=== PATIENT | female | born 1950 | race Two or more races ===

== ENCOUNTER 2018-02-08 12:11 | Emergency (ER) | payer OTHER ==
[2018-02-08] MEDS ORDERED: OLANZapine DISINTEGR 10 MG TAB ONE (13:07)
[2018-02-08] MEDS ORDERED: OLANZapine DISINTEGR 10 MG TAB PO ONE (13:14)
[2018-02-08 13:37] LABS: PLATELET COUNT 339 10^3/uL (150-400)
[2018-02-08] MEDS ORDERED: LORazepam 1 MG TAB PO ONE ×2 (15:17→21:27)
--- NOTE | 2018-02-08 15:22 | EDPHY ---
H & P Smoking Status: Never smoked Time Seen by Provider: 02/08/18 12:44 HPI/ROS: HPI Bipolar, increased aggression towards family. 67-year-old female by private vehicle with family. This patient has been manic according to the family and has had increased aggression towards them. She has not been suicidal. She is on worse. All and paroxetine for psychiatric medications. ROS: Constitutional: No fever, no chills. As above. Eyes: No discharge. No changes in vision. ENT: No sore throat. No nasal congestion or rhinorrhea. Respiratory: No cough. No shortness of breath. Cardiac: No chest pain, no palpitations. Gastrointestinal: No abdominal pain, no vomiting, no diarrhea. Genitourinary: No hematuria. No dysuria or increased frequency with urination. Musculoskeletal: No back pain. No neck pain. No myalgias or arthralgias. Skin: No rashes. Neurological: No headache. No focal weakness or altered sensation. Past medical history: Bipolar, type 2 diabetes, hyperlipidemia. Social history: Nonsmoker. No alcohol. Here with daughter currently. Physical Exam: General Appearance: Alert, mildly agitated. This patient is responding to questions appropriately and in full sentences. This patient appears well- hydrated and well-nourished. Eyes: Pupils equal and round no pallor or injection. No lid edema, erythema or injection. Respiratory: There are no retractions, lungs are clear to auscultation with good air movement bilaterally. Cardiovascular: Regular rate and rhythm. No murmur. Gastrointestinal: Abdomen is soft and nontender, no masses, bowel sounds normal. No focal tenderness at McBurney's point. No Rider sign. Neurological: Motor sensory function is grossly intact. Cranial nerves are normal. Gait is normal. Skin: Warm and dry, no rashes. Musculoskeletal: Neck is supple and nontender. Extremities are symmetrical. All joints range without pain or impingement. Psychiatric: No agitation. No depression. Database: EKG: Imaging: Procedures: Emergency department course: Triage vital signs reviewed. She is mildly tachycardic. Vital signs otherwise normal. She is afebrile. After initial presentation she was trying to tear off her clothes run out of the emergency department. She was placed on an M1 hold by myself at 1:45 p.m.. She was given 10 mg of oral Zyprexa. 3:15 p.m., the patient has been seen and evaluated by Behavioral Health. They are planning on placing her. I have not spoken with them. Her nursing staff tells me that she has remained agitated and feel the Zyprexa has had little effect. She will be given oral Ativan, 1 mg now and this will repeated x1 in half an hour if needed. The patient's remaining emergency department course under my care has been uneventful. The patient's care was turned over to Dr. Jatin Joyner at 3:15 p.m.. Differential Diagnosis: The differential diagnosis on this patient includes but is not limited to bipolar with manic exacerbation. Suicidal ideation, major depression, homicidal ideation unlikely. This represents a partial list of diagnoses considered. These considerations are based on history, physical exam, past history, reassessment and diagnostic testing. (Billy Mckeon) Constitutional: Initial Vital Signs Temperature (C) 36.5 C 02/08/18 12:29 Heart Rate 117 H 02/08/18 12:29 Respiratory Rate 16 02/08/18 12:29 Blood Pressure 179/85 H 02/08/18 12:29 O2 Sat (%) 95 02/08/18 12:29 O2 Delivery Mode Room Air Allergies/Adverse Reactions: No Known Allergies Allergy (Unverified 02/08/18 13:04) Home Medications: Medication Instructions Recorded Amoxicillin Trihydrate 500 mg PO TID 02/08/18 [Amoxicillin] Benazepril HCl [Lotensin (*)] 20 mg PO DAILY 02/08/18 LORazepam [Ativan (*)] 0.5 mg PO BID PRN 02/08/18 PARoxetine HCL [Paxil 20mg (*)] 20 mg PO DAILY 02/08/18 Simvastatin [Zocor] 20 mg PO HS 02/08/18 amLODIPine BESYLATE [Norvasc 5 mg 5 mg PO DAILY 02/08/18 (*)] metFORMIN HCL [Glucophage 500 mg 1,000 mg PO DAILY@1800 02/08/18 (*)] metFORMIN HCL [Glucophage 500 mg 500 mg PO DAILY 02/08/18 (*)] risperiDONE [Risperdal] 4 mg PO HS 02/08/18 Medical Decision Making ED Course/Re-evaluation: The patient was accepted by Dr. Toscano at [facility]. We will transfer there. (Jatin Joyner) 12:30 a.m.- I have completed the EMTALA form for transfer of this patient to [facility]. (Deb Martínez) - Data Points Laboratory Results: Laboratory Results 02/08/18 12:28 02/08/18 12:28 Medications Given: Discontinued Medications Amoxicillin (Amoxicillin) 500 mg PO EDNOW ONE PRN Reason: Protocol Stop: 02/08/18 20:44 Last Admin: 02/08/18 21:32 Dose: 500 mg Atorvastatin Calcium (Lipitor) 10 mg PO EDNOW ONE Stop: 02/08/18 21:31 Last Admin: 02/08/18 21:33 Dose: 10 mg Lorazepam (Ativan) 1 mg PO ONCE ONE Stop: 02/08/18 15:18 Last Admin: 02/08/18 15:27 Dose: 1 mg Lorazepam (Ativan) 1 mg PO EDNOW ONE Stop: 02/08/18 21:28 Last Admin: 02/08/18 21:32 Dose: 1 mg Metformin HCl (Glucophage) 1,000 mg PO ONCE ONE Stop: 02/08/18 20:44 Last Admin: 02/08/18 21:32 Dose: 1,000 mg Olanzapine (Zyprexa Zydis) 10 mg PO EDNOW ONE Stop: 02/08/18 13:15 Last Admin: 02/08/18 13:13 Dose: 10 mg Risperidone (Risperdal) 4 mg PO ONCE ONE Stop: 02/08/18 20:44 Last Admin: 02/08/18 21:33 Dose: 4 mg Departure - Departure Disposition: Other Psych, Not Junior Clinical Impression: Bipolar 1 disorder Condition: Fair Referrals: Janine Fermin MD [Primary Care Provider] - As per Instructions
--- NOTE | 2018-02-08 16:18 | ASMTTLCEVL ---
TLC Evaluation - Basic Information Evaluation Start Date and 02/08/2018 01:00 PM Time Hospital Status Answers: M1 Hold 72-hr M1 Hold Start Date 02/08/2018 12:45 PM and Time Patient statement Notes: Statement obtained from pt's daughter, Ashia. "I brought my mother here because for the past 1 and 1/2 weeks she has been getting progressively worse with not sleeping, likely not taking her medications and now aggressive behavior towards my dad. Today my mom was hyper at [facility] where she took off her clothes and went out of the apartment. She also started throwing objects on the floor. I don't think my mother has slept at all in the past few days. She has been under a lot of stress between taking care of my father who is in a wheelchair and a recent move to [place] from [place] in August. Narrative Notes: Pt is a 67 year old , [place] decent female who presented to the [facility] ED with her daughter due to increased aggression towards family and manic type behaviors. Pt has a hx of bipolar disorder and recently experiencing significant life stressors such as move to [facility] from [place] and primary supply analyst role of who has a hx of multiple strokes. Pt was alert to person, place, time and situation. She was hyper verbal and re-directable with daughter present. Pt's utox was negative for all substances. When pt initially arrived to the [facility] ED she was given 10 mg. of Zyprexa due to agitation and pt. again disrobing herself. Diagnosis History Notes: Pt was diagnosed with bipolar disorder in 1974 but did not start receiving psychiatric treatment until she moved to [facility] in 1988. Prior suicide attempts Notes: There was no hx of suicide attempts reported. Prior hospitalizations Notes: Only prior hospitalization was in 2005 at a hospital located in [place] following a bipolar episode. Treatment Responses Notes: Pt's bipolar disorder was apparently managed well during her lifetime. History of violence Notes: Pt has no hx of violent behavior towards others however it was reported both pt and her are verbally abusive towards each other. Medications (name, dosage, route, freq uency) Notes: Pt is prescribed: Simvastatin, Risperdal, Paroxetine CR, Metformin HCI, Celebrex, Benazepril HCI and Amlodipine Besylate by her local PCP, Dr. Elvia Fermin. Allergies/Reaction Notes: No allergies were reported. Sleep Notes: Daughter reported pt has not been sleeping over the past few days. Sleep pattern has decreased over the past 1 and 1/2 weeks. Appetite Notes: Pt has not been eating regularly over the past 1-2 weeks due to increased manic symptoms. Medical/Surgical history Notes: Pt has a hx of type II diabetes , bipolar disorder and high cholesterol. Substance use history (frequency, intensity, his tory, duration) Notes: Pt does not drink and has no hx of substance abuse or drinking problem. Family composition Notes: Pt is with 2 daughters. Need for family Answers: Yes participation in patient's care Family psychiatric/substance abuse history Notes: Pt's mother had some type of mental illness not diagnosed. Pt also has a cousin and sister with either bipolar or schizophrenia. Developmental history Notes: There was no hx reported of any developmental delays. Abuse concerns Answers: None Marital status/children Notes: in [place] mother of 2 children, both daughters living in [place] and [place]. Daughter stated pt . and her always had a conflictual relationship which she described as verbally abusive towards each other. Living situation Notes: Pt moved into the independent apartments at [facility] in August of 2017 from [place] so she and her could be closer to her daughter. 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 Sexual history/orientation Notes: Pt is heterosexual. Peer support/family strengths Notes: Pt has made attempts to make friends in her senior community but typically according to the daughter both pt and her are isolative. Education level/history Notes: Pt completed her Bachelor's degree in Day. Work history Notes: Pt never was employed while living in [facility]. 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 Notes: No hx. Legal Notes: Pt has no hx of legal problems or arrests. Caodaism/Spiritual Notes: Pt is Muslim. Leisure Notes: It was reported pt spends her free time watching tv. She also is the sole caregiver to her . Collateral Notes: Collateral information was obtained from pt's daughter. Patient's strengths Answers: Intelligent (Please select at least TWO strengths): Supportive Family TLC Evaluation - Mental Status Exam Appearance: Answers: Appropriate Eye Contact: Answers: Appropriate for Culture Mood: Answers: Elevated Euthymic Affect: Answers: Agitated Anxious Apprehensive Congruent w/ Mood Distracted Expansive Hyperactive Irritable Nervous Behavior: Answers: Anxious Erratic Fearful Impulsive Restless Talkative Speech: Answers: Coherent Dramatic Excessive Hyperverbal Thought Process: Answers: Oriented Insight: Answers: Poor Judgement: Answers: Poor Manic Signs/Symptoms Answers: Distractibility Euphoria Grandiosity Impulsivity Irritability Mood Swings Pressured Speech Racing Thoughts Anxiety Signs/Symptoms Answers: Generalized Anxiety Hallucinations: Answers: None Current Stage of Change Answers: Precontemplation Pt reported to have Answers: No suicidal/self-injuring ideation/behavior? Pt reported to be making Answers: No suicidal/self-injuring threats? Pt reported to have Answers: No aggression/assault ideation/behavior? Pt reported to be making Answers: No aggression/assault threats? Pt exhibits inability to Answers: Yes care for self/grave disability? History of Answers: No suicidal/self-injuring ideation, behavior, or threats? History of Answers: No aggressive/assaultive ideation, behavior, or threats? History of serious Answers: No physical harm to self/others while in treatment setting? TLC Evaluation - Suicide/Homicide Risk Suicide Risk Factors: Answers: Agitation Bipolar Disorder Other Notes: caregiving stress None Current Suicidal Answers: No Ideation? Suicide Internal Answers: Other Notes: no report of SI Protective Factors: Suicide External Answers: Responsibility to Protective Factors: Children Ranking of patient's Answers: Low suicidal risk: Ranking of patient's Answers: Low homicidal risk: TLC Evaluation - Wrap-up AXIS I Diagnosis (include DSM-V and ICD-10 codes), must also be entered in [employer], which is the source of truth. Notes: Bipolar I Disorder, current or most recent episode hypomanic 296.40 (F31.0) Evaluation End Date and 02/08/2018 03:15 PM Time (HH:MM): Date Signed: 02/08/2018 04:18 PM Electronically Signed By:Corin Schulte
--- NOTE | 2018-02-08 17:09 | ASMTLCPROG ---
Notes Note: Notes: TLC seeking inpt behavioral health admission preferably on a [facility]. TLC will explore options. Date Signed: 02/08/2018 05:08 PM Electronically Signed By:Corin Schulte
[2018-02-08] MEDS ORDERED: risperiDONE 2 MG TAB PO ONE (20:43)
[2018-02-08] MEDS ORDERED: metFORMIN HCL 500 MG TAB PO ONE (20:43)
[2018-02-08] MEDS ORDERED: ATORVASTATIN CALCIUM 10 MG TAB PO ONE (21:30)
--- NOTE | 2018-02-08 22:52 | CPEKG ---
Test Reason : OPEN Blood Pressure : / mmHG Vent. Rate : 085 BPM Atrial Rate : 086 BPM P-R Int : 146 ms QRS Dur : 076 ms QT Int : 366 ms P-R-T Axes : 065 -41 027 degrees QTc Int : 436 ms Sinus rhythm Inferior infarct, old Confirmed by Jatin Joyner ([id number]) on 02/08/2018 10:52:06 PM Referred By: Confirmed By:Jatin Joyner
--- NOTE | 2018-02-08 23:37 | ASMTTCLDSP ---
TLC Discharge Disposition Disposition: Answers: Transfer Disposition Notes: Notes: In consultation with composition professor psychiatrist Steven Bee MD and ED Physican Jatin Joyner MD the pt does appear to continue to meet 27-65 critieria and does appear to be greavely disabled due to a mental illness. Type of Hold: Answers: M1/72-hour Hold Hold initiated by: Answers: ED Physician For Transfers, [facility]ing [facility]: For Transfers, Accepting Dr. Neely Psychiatrist: For Transfers, Reason Family lives in [place] Patient is Being Transferred: Date Signed: 02/08/2018 11:37 PM Electronically Signed By:Gumaro Parker
[2018-02-09 00:44] VITALS: BP 124/88
== END 2018-02-09 01:10 ==
DX: F31.9 Bipolar disorder, unspecified (principal); E11.9 Type 2 diabetes mellitus without complications; E78.5 Hyperlipidemia, unspecified
CPT/HCPCS: 80305; G0480